=== PATIENT | female | born 1965 | race Caucasian/White ===

== ENCOUNTER → 2024-02-01 | Outpatient (CLI) | payer OTHER, SELFPAY ==
[2024-02-01 08:35] LABS: Anion Gap 1 (5-15); BUN 14 mg/dL (7-18); Calcium,Total 9.3 mg/dL (8.5-10.1); Chloride 106 mmol/L (98-107); Cholesterol 184 mg/dL (200); Creatinine, Serum 0.74 mg/dL (0.55-1.02); EST Glomerular Filtration Rate 86 mL/min (>60); Est Glom Filt Rate - Afr Amer 104 mL/min (>60); Glucose 95 mg/dL (74-106); High Density Lipoprotein 62 mg/dL; Potassium 4.1 mmol/L (3.5-5.1); Sodium Level 139 mmol/L (136-145); Triglycerides 80 mg/dL; Very Low Density Lipoprotein 16 mg/dL (5-40)
[2024-02-01 13:12] LABS: Hemoglobin A1c 5.1 % (3.8-5.6)
== END | disposition home or self-care (01) ==
LOC: LAB 07:28
PROVIDERS: Referring Provider Obstetrics & Gynecology; Visit Provider Obstetrics & Gynecology
DX: Z13.1 Encounter for screening for diabetes mellitus (principal); Z13.220 Encounter for screening for lipoid disorders
CPT/HCPCS: 36415; 80048; 80061; 83036

== ENCOUNTER → 2024-02-09 | Outpatient (CLI) | payer OTHER, SELFPAY ==
--- NOTE | 2024-02-09 07:28 | BI_ITS ---
MAMMOGRAPHY - BILATERAL SCREENING 3-D TOMOSYNTHESIS REASON FOR EXAM: Female, 58 years old. SCREENING PERTINENT HISTORY: No significant family history. TECHNIQUE: 2-D mammograms and 3-D Tomosynthesis of the breast (s) were performed. CAD was performed. COMPARISON: None. FINDINGS: The breast composition is heterogeneously dense that can obscure small breast masses. Scattered benign calcifications are seen. No dominant mass right breast. 1 cm oval obscured equal density mass in the upper outer quadrant left breast at posterior depth and focal compression views recommended for further evaluation. No suspicious calcifications.. No architectural distortion is identified. There is no skin thickening or retraction. BI/SCRN MAMM (CAD)W/DEMIAN BILAT IMPRESSION: Further imaging evaluation is recommended. ASSESSMENT CATEGORY: BIRADS Category 0: Incomplete. Need additional imaging evaluation as above. A letter regarding these results will be sent to the patient by the facility within 30 days. FOLLOW UP RECOMMENDATION: Additional imaging recommended as above. (E) Approximately 10% of breast cancers are not detected by mammography. A normal mammogram should not delay biopsy of a clinically suspicious abnormality. Electronically Signed: Dwight Garland MD at 18:19 EDT ,
== END | disposition home or self-care (01) ==
LOC: OPBI 07:27
PROVIDERS: Referring Provider Obstetrics & Gynecology; Visit Provider Obstetrics & Gynecology
DX: Z12.31 Encounter for screening mammogram for malignant neoplasm of breast (principal)
CPT/HCPCS: 77063; 77067

== ENCOUNTER → 2024-02-15 | Outpatient (CLI) | payer OTHER, SELFPAY ==
--- NOTE | 2024-02-15 09:02 | US_ITS ---
STUDY: ULTRASOUND BREAST - LEFT REASON FOR EXAM: Female, 58 years old. Abnormal screening mammogram. TECHNIQUE: Axial and longitudinal images of the LEFT breast were performed with a high resolution ultrasound transducer. # OF IMAGES: 8 COMPARISON: Comparison is made with prior mammograms dated February 09, 2024 and February 15, 2024. FINDINGS: LEFT Breast: The upper outer quadrant of the left breast was examined with ultrasound. There is evidence of a 1 cm x 1.3 cm x 0.7 cm cyst at the 2:00 position of the breast at 7 cm from the nipple. US/Breast Limited Unilateral IMPRESSION: There is a 1 cm x 1.3 cm x 0.7 cm cyst at the 2:00 position of the breast at 7 cm from the nipple. ASSESSMENT CATEGORY: BIRADS Category 2: Benign. A letter regarding these results will be sent to the patient by the facility within 30 days. Electronically Signed: Sivlio Loza MD at 14:14 EDT ,
--- NOTE | 2024-02-15 09:02 | BI_ITS ---
MAMMOGRAPHY - UNILATERAL DIAGNOSTIC: LEFT BREAST REASON FOR EXAM: Female, 58 years old. Abnormal screening mammogram. PERTINENT HISTORY: Non-contributory. TECHNIQUE: Compression spot views in the mediolateral oblique and craniocaudad projections were obtained. CAD: Full Field Digital Mammography with Computer Added Detection was performed. COMPARISON: Comparison is made with prior study dated February 09, 2024. FINDINGS: Breast Composition: The breasts are heterogeneously dense, which may obscure small masses. There are no dominant masses or suspicious calcifications. No other significant abnormalities are identified. BI/DIAG MAMM W/CAD, UNILAT IMPRESSION: Negative unilateral diagnostic mammogram. Targeted sonographic correlation recommended. ASSESSMENT CATEGORY: BIRADS Category 0: Incomplete. Need additional imaging evaluation. A letter regarding these results will be sent to the patient by the facility within 30 days. Approximately 10% of breast cancers are not detected by mammography. A normal mammogram should not delay biopsy of a clinically suspicious abnormality. Electronically Signed: Silvio Loza MD at 10:02 EDT ,
== END | disposition home or self-care (01) ==
LOC: OPBI 08:58
PROVIDERS: Referring Provider Obstetrics & Gynecology; Visit Provider Obstetrics & Gynecology
DX: N60.02 Solitary cyst of left breast (principal)
CPT/HCPCS: 76642; 77065

== ENCOUNTER 2024-04-01 07:49 | Day surgery (SDC) | payer OTHER, SELFPAY ==
[2024-04-01] VITALS (7 sets, daily range): BP systolic 174–188; BP diastolic 85–96; PULSE 58–78; RESP 16–18; TEMP 36.1–36.8; O2SAT 96–100; BMI 32.9
--- NOTE | 2024-04-01 08:15 | PRE.ANES_ITS ---
ASA Classification* ASA Classification ASA Classification: 2 Assessment & Plan Anesthesia* Anesthesia Assessment Anesthesia Assessment: Discussed sedation and/or anesthesia options, risks, benefits, and alternatives with patient/parents/legal guardian/POA. Questions invited. The patient/parents/legal guardian/POA seems to understand and agrees to proceed with anesthesia plan. Reviewed the physical assessment, medical history, allergy history and patient home medications list prior to surgery/procedure/anesthetic and documented any changes. Performed airway and anesthesia risk assessments. Anesthesia Type Anesthesia Type: MAC (see written pre anesthesia record for full assessment) Anesthesia Focused Assessment* Airway Assessment Mouth opens: >3 cm Mallampati Score: II Focused Labs Anesthesia Preop lab: CBC CHEMISTRY Potassium 4.1 mmol/L (3.5-5.1) 02/01/24 07:30 Sodium 139 mmol/L (136-145) 02/01/24 07:30 BUN 14 mg/dL (7-18) 02/01/24 07:30 Creatinine 0.74 mg/dL (0.55-1.02) 02/01/24 07:30 Glucose 95 mg/dL (74-106) 02/01/24 07:30 COAG Pre-Assessment Diagnosis/Proposed Procedure Planned Operative Procedure(s): CSCOPE OA Anesthesia History Anesthesia History - talent acquisition consultant: Anesthesia History - talent acquisition consultant Hx Hospitalization No 03/27/24 08:02 Any Problems With Anesthesia No 03/27/24 08:02 Cholinesterase deficiency No 03/27/24 08:02 You/Your Family Experience No 03/27/24 08:02 fever (hyperthermia) with Relationship Recent Exposure to Contagious Disease Does patient have nerve No 03/27/24 08:02 stimulator Patient instructed to have device shut off --Does patient have Pacemaker or ICD? When Was Last Pacemaker Check QUESTION #4 FULL TEXT: You/Your Family Experience fever (hyperthermia) with Anesthesia Last Oral Intake Last Oral intake: Last Oral Intake NPO since Meds taken in AM with sips of water? Meds patient instructed to take am of surgery PONV PONV - talent acquisition consultant: PONV - talent acquisition consultant Female Yes 03/27/24 08:02 HX of Motion Sickness No 03/27/24 08:02 HX of N/V After Surgery No 03/27/24 08:02 Non-Smoker Yes 03/27/24 08:02 Duration of Surgery greater No 03/27/24 08:02 than 60 minutes Number of Risk Factors 2 03/27/24 08:02 PONV Score Moderate Risk 03/27/24 08:02 Height & Weight Height & Weight: Anesthesia: Height & Weight Height 4 ft 11 in 02/09/24 13:40 Respiratory Assessment Respiratory Assessment - talent acquisition consultant: Respiratory Tract Infection Hx - talent acquisition consultant Hx Respiratory Tract Infection No 03/27/24 08:02 STOP Sleep Apnea STOP Sleep Apnea - talent acquisition consultant: STOP Sleep Apnea - talent acquisition consultant Hx Hypertension Yes: MANY YRS AGO ON MED 03/27/24 08:02 Hx Sleep Apnea No 03/27/24 08:02 CPAP BIPAP Do you snore loudly (louder Yes 03/27/24 08:02 than talking or can be heard Do you often feel tired/ No 03/27/24 08:02 fatigued/ sleepy during daytime? Has anyone observed you stop No 03/27/24 08:02 breathing during sleep? STOP Results Positive 03/27/24 08:02 QUESTION #5 FULL TEXT : Do you snore loudly (louder than talking or can be heard through closed doors)? Tobacco Use History Tobacco Use History - talent acquisition consultant: Tobacco Use History - talent acquisition consultant Tobacco Use Smoking Status Never smoker 03/27/24 08:02 Hx Tobacco Use No 03/27/24 08:02 Years Smoking Packs Smoked per Day Smoking Cessation Date was within the last 15 years Hx Smoking Cessation Date Hx Smoking Cessation No 03/27/24 08:02 Counseling Hematologic Medial History Hematologic Hx - talent acquisition consultant: Hematologic Medical Hx - design engineering manager Hx of Blood Transfusion No 03/27/24 08:02 Hx of Transfusion in last 3 No 03/27/24 08:02 Months Date of Last Transfusion (if within last 3 months) Ever experience any problems No 03/27/24 08:02 with transfusion(s)? Specify any problems Hx of Preganancy in last 3 No 03/27/24 08:02 Months Nurse Filling Out Transfusion DSCHRIBER 03/27/24 08:02 & Questions: Date: 03/27/24 03/27/24 08:02 Time: 08:03 03/27/24 08:02 Patient unable to answer at this time (ie. confused, unrespo /Reproduction History /Reproductive History - talent acquisition consultant: /Reproductive Hx- talent acquisition consultant Hx Now No 03/27/24 08:02 Gestational Age (in weeks): EDC: Hx Hx Para Hx Section SAB No 03/27/24 08:02 Active Medications Active Medications: Current Medications Generic Name Dose Route Start Last Admin Trade Name Freq PRN Reason Stop Dose Admin Lactated Ringer's 1,000 mls @ 15 mls/hr 04/01/24 08:00 IV .Q48H ANY PFSH Medical History Wears glasses Post-menopausal Alcohol use Low iron Dietary restriction Non-smoker Hypertension Family history of colon cancer in father Home Medications ?Medication ?Instructions ?Recorded ?Last Taken ?Type biotin 2,500 mcg chewable tablet 2,500 mcg PO DAILY 02/09/24 Unknown History cholecalciferol (vitamin D3) 50 50 mcg PO DAILY 02/09/24 Unknown History mcg (2,000 unit) capsule magnesium oxide 400 mg PO DAILY 02/09/24 Unknown History multivitamin 1 tab PO DAILY 02/09/24 Unknown History zinc gluconate 30 mg tablet 30 mg PO DAILY 02/09/24 Unknown History Allergy/AdvReac Type Severity Reaction Status Date / Time Sulfa (Sulfonamide Allergy Rash Verified 03/27/24 08:01 Antibiotics) (sulfa drugs) Family History Father Colon cancer Surgical History Hx of tubal ligation Hx of breast reduction, elective Hx of gastric bypass Hx of colonoscopy Social History household members: spouse current occupational status: employed Smoking Status: Never smoker substance use type: does not use Review of Systems (Anesthesia) ROS Narrative System reviewed and no additional complaints, except as documented.
[2024-04-01] MEDS: Lactated Ringers 1,000 ML 15 ML IV (08:21)
--- NOTE | 2024-04-01 08:41 | HP.PCM_ITS ---
HPI - General HPI Narrative MARLY MCMULLEN, is a 58 F who presents for screening colonoscopy. She reports that her last colonoscopy was 10 years ago. She denies abdominal pain or blood in the stool. She has family history of colon cancer in her father over age 60 [facility] Medical History Wears glasses Post-menopausal Alcohol use Low iron Dietary restriction Non-smoker Hypertension Family history of colon cancer in father Home Medications ?Medication ?Instructions ?Recorded ?Last Taken ?Type biotin 2,500 mcg chewable tablet 2,500 mcg PO DAILY 02/09/24 Unknown History cholecalciferol (vitamin D3) 50 50 mcg PO DAILY 02/09/24 Unknown History mcg (2,000 unit) capsule magnesium oxide 400 mg PO DAILY 02/09/24 Unknown History multivitamin 1 tab PO DAILY 02/09/24 Unknown History zinc gluconate 30 mg tablet 30 mg PO DAILY 02/09/24 Unknown History Allergy/AdvReac Type Severity Reaction Status Date / Time Sulfa (Sulfonamide Allergy Rash Verified 04/01/24 08:18 Antibiotics) (sulfa drugs) Family History Father Colon cancer Surgical History Hx of tubal ligation Hx of breast reduction, elective Hx of gastric bypass Hx of colonoscopy Social History household members: spouse current occupational status: employed Smoking Status: Never smoker substance use type: does not use Past Medical/Surgical History Planned Operation Planned Operative Procedure(s): CSCOPE OA Previous Hospitalizations/Surgeries HX Hospitalizations: No Any Problems With Anesthesia: No You/Your Family Experience Fever (Hyperthermia) With Anes: No Cholinesterase deficiency: No Cardiovascular Hx Hypertension: Yes (MANY YRS AGO ON MED) Respiratory Hx Sleep Apnea: No Hx Respiratory Tract Infection/Cold (presently): No Do You Snore Loudly (louder than talking or can be heard): Yes Do You Often Feel Tired/ Fatigued/ Sleepy Dring Daytime?: No Has Anyone Observed You Stop Breathing During Sleep?: No Result (for STOP score): Positive Smoking Status: Never smoker Neurological Does patient have nerve stimulator: No Reproduction : No Miscellaneous Recent Exposure to Contagious Disease: No Allergies Sulfa (Sulfonamide Antibiotics) (sulfa drugs) Allergy (Verified 04/01/24 08:18) Rash Discharge Is Pt Admitted From a Long Term, or a Snf: No After D/C, Where Do you Plan to Go: Return Home Vital Signs Vital Signs Vital Signs: 04/01/24 08:21 04/01/24 08:21 Temperature 98.1 F Temperature Source Temporal Pulse Rate 58 L Respiratory Rate 16 Respiratory Pattern Normal Blood Pressure 183/91 H Blood Pressure Mean 121 Blood Pressure Source Monitor Blood Pressure Position Semi-Fowlers Blood Pressure Location Right Arm Pulse Ox 100 Oxygen Delivery Method Room Air Weight Weight: 163 lb 2.273 oz Body Mass Index (BMI) 32.9 Physical Exam Const alert and oriented x3 HEENT normocephalic Eyes PERRL Resp normal respiratory effort and normal air movement Cardio regular rate and regular rhythm GI soft to palpation, non-tender and non-distended Extremity normal to inspection Assessment & Plan Assessment/Plan (1) Encounter for screening for malignant neoplasm of colon: PLAN: I explained endoscopy in detail to the patient. I explained the risks including but not limited to stroke or heart attack with anesthesia, perforation of the GI tract, bleeding, infection. I explained that any of these could necessitate further emergency surgery. The patient understands and all questions were answered sufficiently. The patient wishes to proceed with procedure. Ha Maier MD Pager: [facility] [address] [place] [address], [address] [place] [address] Office: Surgery Risks - Colonoscopy Risks Include but are not Limited To: Risks include but are not limited to: Bleeding, perforation requiring further surgery, inability to complete colonoscopy requiring barium enema.
--- NOTE | 2024-04-01 09:00 | COLBX_PTH ---
PATIENT: MARLY MCMULLEN LOC: EN U#:[id number] AGE/SX: 58/F ROOM: RE04/01/[address]: Dr. Ha Maier MD : 1965 BED: DIS: 04/01/2024 SPEC #: [id number] RECD: 04/01/24 10:34 STATUS: AUSITN GILLIS #: [id number] MILY: 04/01/24 09:[address]: Ha Maier DEPT: SURGICAL PATHOLOGY RECD BY: Jonathan Quiroz ENTERED: 04/01/24 11:05 SP TYPE: COLON BX OTHR DR: No Primary Care Phys Tissues: Rectum, NOS Procedures: Surgery Specimen Level IV HEADER OPERATION: Colonoscopy, polypectomy PRE-OP DIAGNOSIS: Encounter for screening for malignant neoplasm of colon TISSUE SUBMITTED: Rectal polyps x3 MICROSCOPIC DIAGNOSIS Rectal polyp, polypectomy: Tubular adenoma. See comment. DEJUAN/ 04/02/2024 COMMENT This specimen consists of only one fragment of tissue. Clinical correlation and appropriate follow up are necessary. MICROSCOPIC DESCRIPTION Slides are reviewed. GROSS DESCRIPTION Received in fixative is one container labeled with the patient's name and designated Rectal polyps x3. The specimen consists of a spencer-pink polyp measuring 0.6 x 0.5 x 0.3cm. The entire specimen is submitted in one cassette.DEJUAN/ 04/01/2024 TC:1 CPT:30703
--- NOTE | 2024-04-01 09:21 | PCM.POST.ANE ---
Anesthesia: Postop Eval I Current Vital Signs Temperature: 96.9 F Pulse Rate: 77 Blood Pressure: 175/89 Respiratory Rate: 18 Pulse Ox: 96 Oxygen Delivery Method: Room Air Assessment Airway patent: Yes Spontaneous unlabored respirations: Yes Mental status: Awake and Calm nausea: No Vomiting: No Anesthesia Complication: No Fluid Hydration Crystalloid volume administer (ml): 800 Total IV fluid infused: 800 Progress Note Anesthesia document: Postop Eval 1 completed: Yes
--- NOTE | 2024-04-01 09:29 | OP.COLON_ITS ---
Patient Name: Noemy Fagan Procedure Date: 04/01/2024 8:49 AM Date of : 1965 Age: 58 Procedure: Colonoscopy Indications: Screening for colorectal malignant neoplasm Providers: Ha Maier MD Medicines: Propofol per Anesthesia Patient Profile: This is a 58 year old female. Refer to note in patient chart for documentation of history and physical. Last Colonoscopy: 10 years ago. Complications: No immediate complications. Procedure: Pre-Anesthesia Assessment: - Prior to the procedure, a History and Physical was performed, and patient medications and allergies were reviewed. The patient's tolerance of previous anesthesia was also reviewed. The risks and benefits of the procedure and the sedation options and risks were discussed with the patient. All questions were answered, and informed consent was obtained. Prior Anticoagulants: The patient has taken no anticoagulant or antiplatelet agents. After reviewing the risks and benefits, the patient was deemed in satisfactory condition to undergo the procedure. After I obtained informed consent, the scope was passed under direct vision. Throughout the procedure, the patient's blood pressure, pulse, and oxygen saturations were monitored continuously. The Colonoscope was introduced through the anus and advanced to the cecum, identified by appendiceal orifice and ileocecal valve. The colonoscopy was performed without difficulty. The patient tolerated the procedure well. The quality of the bowel preparation was good. The ileocecal valve, appendiceal orifice, and rectum were photographed. Scope In: 8:53:41 AM Scope Withdrawal Time 0 hours 6 minutes 31 seconds Scope Out: 9:22:45 AM Total Procedure Duration Time 0 hours 29 minutes 4 seconds Findings: The entire examined colon appeared normal on direct and retroflexion views. Three polyps were found in the rectum. The polyps were small in size. These polyps were removed with a hot snare. Resection and retrieval were complete. Impression: - The entire examined colon is normal on direct and retroflexion views. - No specimens collected. Recommendation: - Discharge patient to home. - Resume previous diet. - Continue present medications. - Await pathology results. - Repeat colonoscopy in 5 years for surveillance. Procedure Code(s): --- Professional --- 35054, Colonoscopy, flexible; with removal of tumor(s), polyp(s), or other lesion(s) by snare technique Diagnosis Code(s): --- Professional --- Z12.11, Encounter for screening for malignant neoplasm of colon CPT copyright 2021 [employer]. All rights reserved. The codes documented in this report are preliminary and upon database development project manager review may be revised to meet current compliance requirements. Ha Maier MD 04/01/2024 9:28:49 AM This report has been signed electronically. Number of Addenda: 0 Note Initiated On: 04/01/2024 8:49 AM
--- NOTE | 2024-04-01 09:29 | OP.CCLET_ITS ---
04/01/2024 No Primary Care Physician Re : Colonoscopy procedure for Noemy Fagan [facility] [place] [facility] Physician This procedure was performed on Monday, April 01, 2024. My impressions and recommendations are as follows: Impressions : - The entire examined colon is normal on direct and retroflexion views. - No specimens collected. Recommendations : - Discharge patient to home. - Resume previous diet. - Continue present medications. - Await pathology results. - Repeat colonoscopy in 5 years for surveillance. My findings are described in the full procedure note, which is enclosed. If I can be of further assistance, please feel free to contact me at Doctor phone number(s): , Work: . Sincerely, Ha Maier MD 04/01/2024 9:28:49 AM This report has been signed electronically.
--- NOTE | 2024-04-01 09:46 | POSTOPAN2_ITS ---
Anesthesia Postop Eval I Sum Postop Eval Completion status Anesthesia document: Postop Eval 1 completed: Yes Anesthesia Postop Eval I Summary Anesthesia Postop Eval I Summary: Anesthesia Postop Eval I: Assessment Summary Airway patent Yes 04/01/24 09:23 GLASS BLOCK [email or web address] Spontaneous unlabored Yes 04/01/24 09:23 GLASS BLOCK [email or web address] respirations Mental status Awake,Calm 04/01/24 09:23 GLASS BLOCK [email or web address] nausea No 04/01/24 09:23 GLASS BLOCK [email or web address] Vomiting No 04/01/24 09:23 GLASS BLOCK [email or web address] Anesthesia Postop Eval I: Fluid Summary Crystalloid volume administer 800 04/01/24 09:23 GLASS BLOCK [email or web address] (ml) Colloids volume administered ( ml) Blood Product volume administered (ml) Total IV fluid infused 800 04/01/24 09:23 GLASS BLOCK [email or web address] Anesthesia Postop Eval I: Summary Notes Anesthesia Complication No 04/01/24 09:23 GLASS BLOCK [email or web address] Anesthesia Complication Comment: Post-operative progress note Anesthesia: Postop Eval II Evaluation Mental status: Awake Pain Level: 0 nausea: No Vomiting: No
--- NOTE | 2024-04-01 09:46 | PCM.POSTANE2 ---
Anesthesia Postop Eval I Sum Postop Eval Completion status Anesthesia document: Postop Eval 1 completed: Yes Anesthesia Postop Eval I Summary Anesthesia Postop Eval I Summary: Anesthesia Postop Eval I: Assessment Summary Airway patent Yes 04/01/24 09:23 [email or web address] Spontaneous unlabored Yes 04/01/24 09:23 [email or web address] respirations Mental status Awake,Calm 04/01/24 09:23 [email or web address] nausea No 04/01/24 09:23 [email or web address] Vomiting No 04/01/24 09:23 [email or web address] Anesthesia Postop Eval I: Fluid Summary Crystalloid volume administer 800 04/01/24 09:23 [email or web address] (ml) Colloids volume administered ( ml) Blood Product volume administered (ml) Total IV fluid infused 800 04/01/24 09:23 [email or web address] Anesthesia Postop Eval I: Summary Notes Anesthesia Complication No 04/01/24 09:23 [email or web address] Anesthesia Complication Comment: Post-operative progress note Anesthesia: Postop Eval II Evaluation Mental status: Awake Pain Level: 0 nausea: No Vomiting: No
== END 2024-04-01 10:11 | disposition home or self-care (01) ==
LOC: EN 07:49 → AC 07:51
PROVIDERS: Visit Provider Surgery
PROC: 0DJD8ZZ Inspection of Lower Intestinal Tract, Via Natural or Artificial Opening Endoscopic (ICD-10-PCS; CPT 45378; principal; 2024-04-01 08:55)
DX: Z12.11 Encounter for screening for malignant neoplasm of colon (principal); I10 Essential (primary) hypertension; Z80.0 Family history of malignant neoplasm of digestive organs; D12.8 Benign neoplasm of rectum
CPT/HCPCS: 45385; 88305; J7120

== ENCOUNTER → 2024-11-22 | Outpatient (CLI) | payer OTHER, SELFPAY ==
[2024-11-22 15:41] LABS: Absolute Lymphocyte Count 2.63 X10^3/uL (0.83-4.51); Absolute Neutrophil Count 2.9 X10^3/uL (2.0-7.7); Basophil# 0.03 X10^3/uL; Basophil% 0.5 % (0-1); Eosinophil# 0.13 X10^3/uL; Eosinophils% 2.1 % (0-5); Hematocrit 42.3 % (37-47); Hemoglobin 14.1 g/dL (12.0-15.0); Lymphocyte # 2.63 X10^3/ul (0.83-4.51); Mean Corp Hgb Conc 33.3 g/dL (32-36); Mean Corpuscular Hgb 29.6 pg (27.0-32.0); Mean Corpuscular Volume 88.9 fL (81-99); Mean Platelet Vol. 9.6 fl (6.2-12.0); Monocyte% 6.5 % (0-10); NRBC Flagged by Analyzer 0 % (0-5); Neutrophil # 2.92 X10^3/uL (2.7-7.7); Neutrophil % 47.7 % (47-70); Platelet Count 312 K/mm3 (150-450); RBC Distribution Width CV 12.7 % (11.6-14.6); RBC Distribution Width SD 41.5 fl (35.1-43.9); Red Blood Count 4.76 M/mm3 (4.2-5.4); White Blood Count 6.1 K/mm3 (4.4-11.0)
[2024-11-22 17:20] LABS: ALB/GLOB Ratio 1.6 RATIO (0.9-2.4); AST(SGOT) 16 U/L (<=31); Alanine Aminotransfer ALT/SGPT 12 U/L (<=34); Albumin, Serum 4.5 g/dL (3.4-4.8); Alkaline Phosphatase 72 U/L (35-104); Anion Gap 15 (5-15); BUN 11 mg/dL (4-19); Calcium,Total 9.7 mg/dL (7.6-11.0); Carbon Dioxide 22.9 mmol/L (21.0-32.0); Chloride 102 mmol/L (98-108); Creatinine, Serum 0.67 mg/dL (0.70-1.20); EST Glomerular Filtration Rate 100 (>60); Globulin 2.8 g/dL (2.2-4.2); Glucose 77 mg/dL (70-99); Potassium 3.8 mmol/L (3.3-5.1); Protein, Total 7.3 g/dL (5.9-8.4); Sodium Level 140 mmol/L (133-145); Total Bilirubin 0.91 mg/dL (0.00-1.30); Vitamin D,25 Hydroxy 29.9 ng/mL (30-100)
[2024-11-22 18:23] LABS: Cholesterol 179 mg/dL (<=200); High Density Lipoprotein 56 mg/dL; Low Density Lipoprotein Calc. 103 mg/dL; Triglycerides 99 mg/dL; Very Low Density Lipoprotein 20 mg/dL (5-40); cholesterol:hdl ratio screen 3.19
== END | disposition home or self-care (01) ==
LOC: MFPLAB 11:54
PROVIDERS: PCP Family Medicine; Referring Provider Family Medicine; Visit Provider Family Medicine
DX: R53.83 Other fatigue (principal); Z13.1 Encounter for screening for diabetes mellitus; Z13.220 Encounter for screening for lipoid disorders
CPT/HCPCS: 36415; 80053; 80061; 82306; 84443; 85025

== ENCOUNTER → 2025-03-03 | Outpatient (CLI) | payer OTHER, SELFPAY ==
--- NOTE | 2025-03-03 11:49 | BI_ITS ---
EXAM: SCRN MAMM (CAD)W/DEMIAN BILAT DATE: 03/03/2025 CLINICAL HISTORY: F, Age 59 y/o , SCREENING No family history. Prior bilateral breast reduction surgery. BREAST CANCER RISK ASSESSMENT: Not assessed. TECHNIQUE: Bilateral screening digital breast tomosynthesis with 2D and 3D images. Computer aided detection. COMPARISON: Prior exam(s) dated February 09, 2024 and February 15, 2024.. FINDINGS: TISSUE DENSITY: The breast tissue is heterogeneously dense, which may obscure small masses. Bilateral Breast Mammographic Findings: Stable 1.2 cm well-defined nodule in the upper lateral aspect of the left breast. Prior sonogram demonstrated this to be a cyst. No suspicious masses, areas of developing architectural distortion, or suspicious calcifications. There has been no significant interval change. BI/SCRN MAMM (CAD)W/DEMIAN BILAT IMPRESSION: Stable examination. OVERALL FINAL ASSESSMENT BI-RADS 2: BENIGN RECOMMEND ANNUAL MAMMOGRAPHIC SCREENING. RECOMMENDATION: Routine annual follow-up in 1 Year A letter with findings and recommendations will be mailed to the patient. Reading Location: [place] [id number]
== END | disposition home or self-care (01) ==
LOC: OPBI 11:48
PROVIDERS: PCP Family Medicine; Referring Provider Nurse Practitioner; Visit Provider Nurse Practitioner Family
DX: Z12.31 Encounter for screening mammogram for malignant neoplasm of breast (principal)
CPT/HCPCS: 77063; 77067